=== PATIENT | female | born 1985 | race American Indian/Alaskan Native ===

== ENCOUNTER 2020-11-27 10:10 | Day surgery (SDC) | payer MEDICAID ==
[2020-11-27] MEDS ORDERED: HYDROmorphone 1 MG/1 ML INJ IV PRN ×2 (11:24)
[2020-11-27] MEDS ORDERED: ONDANSETRON 4 MG/2 ML INJ IV PRN (11:24)
--- NOTE | 2020-11-27 11:24 | Anesthesia Consultation ---
Anesthesia Consult and Med Hx Date of service: 11/27/20 - Airway Anesthetic Teeth Evaluation: Good ROM Head & Neck: Adequate Mental/Hyoid Distance: Adequate Mallampati Class: Class I Intubation Access Assessment: Good - Pre-Operative Health Status ASA Pre-Surgery Classification: ASA2 Proposed Anesthetic Plan: General - Pulmonary Hx Smoking: No Hx Asthma: No COPD: No Hx Pneumonia: No Hx Sleep Apnea: No - Cardiovascular System Hx Hypertension: Yes - Central Nervous System Hx Psychiatric Problems: No - Gastrointestinal Hx Gastroesophageal Reflux Disease: No - Endocrine Hx End Stage Renal Disease: No - Hematic Hx Sickle Cell Disease: No - Other Systems Hx Cancer: No Hx Obesity: Yes
--- NOTE | 2020-11-27 11:24 | Anesthesia Day of Surgery ---
Anesthesia Day of Surgery - Day of Surgery Patient Examined: Yes Patient H&P Reviewed: Yes Patient is NPO: Yes
[2020-11-27] MEDS ORDERED: ACETAMINOPHEN 500 MG TAB PO ONE (11:25)
[2020-11-27] MEDS ORDERED: MAGNESIUM OXIDE 400 MG TAB PO ONE (11:25)
[2020-11-27] MEDS ORDERED: LACTATED RINGERS 1,000 ML IV SCH (11:30)
[2020-11-27] MEDS ORDERED: MIDAZOLAM 2 MG/2 ML INJ IV NR (12:00)
[2020-11-27] MEDS ORDERED: CELECOXIB 200 MG CAP PO NR (12:00)
[2020-11-27] MEDS ORDERED: fentaNYL 100 MCG/2 ML INJ ONE (12:31)
[2020-11-27] MEDS ORDERED: propofoL 200 MG/20 ML VIAL IV ONE (12:31)
[2020-11-27] MEDS ORDERED: LIDOCAINE MPF (2%) 20 MG/1 ML VIAL 5 ML ONE ×2 (12:32)
[2020-11-27] MEDS ORDERED: BUPIVACAINE/PF (0.5%) 5 MG/1 ML 30 ML VIAL INFILTRATI ONE ×2 (12:46→14:12)
[2020-11-27] MEDS ORDERED: dexAMETHasone 20 MG/5 ML VIAL ONE (13:20)
[2020-11-27] MEDS ORDERED: ROCURONIUM 50 MG/5 ML INJ IV ONE (13:20)
[2020-11-27] MEDS ORDERED: ONDANSETRON 4 MG/2 ML INJ ONE (13:20)
[2020-11-27] MEDS ORDERED: GLYCOPYRROLATE 0.4 MG/2 ML INJ ONE (13:48)
[2020-11-27] MEDS ORDERED: NEOSTIGMINE 10MG/10 ML INJ MDV ONE (13:49)
--- NOTE | 2020-11-27 13:56 | History and Physical Report ---
History of Present Illness Date of examination: 11/27/20 History of present illness: PT is a 35 yo who desires sterilization. BTL papers signed 06/18/20. BP controlled well with meds. No other issues. Past History Past Medical History: hypertension Past Surgical History: no surgical history [employer] History: chlamydia Social history: no significant social history - Obstetrical History : 5 Para: 4 Spontaneous Abortions: 1 Number of Living Children: 4 Medications and Allergies Allergies Allergy/AdvReac Type Severity Reaction Status Date / Time No Known Allergies Allergy Verified 11/27/20 11:32 Home Medications Medication Instructions Recorded Confirmed Last Taken Type Norethindrone AC-Eth Estradiol 1 each PO DAILY 11/26/20 11/26/20 Unknown History [Norethin-Ee 1.5-0.03 mg(21) Tb] amLODIPine [Norvasc] 10 mg PO DAILY 11/26/20 11/26/20 Unknown History Review of Systems All systems: negative (except HPI) - Vital Signs Vital signs: see EMR charting - Physical Exam Cardiovascular: Regular rate, No murmurs Lungs: Positive: Clear to auscultation, Normal air movement Vulva: both: normal Vagina: Positive: normal moisture. Negative: discharge Cervix: Negative: lesion, discharge Uterus: Positive: normal size, normal contour Adnexa: both: normal Results All other labs normal. Assessment and Plan - Patient Problems (1) Sterilization Current Visit: No Status: Acute Plan to address problem: PT is for Lap BTL on 11/27/20. PT fully counseled including the approximately 09/999 risk of BTL failure. She understands and accepts that. Patient fully consented for the surgery. Risks, benefits, and alternatives were all discussed with the patient including risk of bleeding, infection, and potential for injury. Patient understands and accepts these risks. Patient agrees to proceed with surgery. All questions were answered.
--- NOTE | 2020-11-27 14:00 | Post Operative Note ---
Date of procedure: 11/27/20 Pre-op diagnosis: Sterilization Post-op diagnosis: same Findings: Normal uterus and tubes. Ovaries appear to be within normal limits but visualization of both of them was partially obstructed by the scarring that she had. This was likely from her history of chlamydia. The remainder of the abdominal survey was within normal limits. Procedure: Indication: This is a 35-year-old -0-1-4 who desires sterilization. As result patient here for her scheduled laparoscopic bilateral tubal ligation with Filshie clips. Procedure: Laparoscopic bilateral tubal ligation. Patient taken the operating room and prepped and draped in usual fashion. Attention was first turned vaginally where single-tooth tenaculum was applied to the anterior lip of the cervix and an acorn uterine manipulator was placed. Attention was now turned abdominally where a 5 mm incision was made in the umbilicus. Veres needle then placed in the abdominal cavity. The abdomen was appropriately insufflated with CO2 gas. Veres needle removed and the 5 mm trocar was placed in abdominal cavity. Placement confirmed with the camera. Attention was turned suprapubically where an 8 mm incision was made and the 8 mm trocar was placed suprapubically in the midline under direct visualization. Trocar placed successfully and without difficulty. Attention was first turned to assess in the abdomen and pelvis. Findings noted above. Attention turned to the tubal ligation where a Filshie clip was applied to each tube. Each clip encompassed the full width of the tube on each side and good hemostasis was noted afterwards on both sides. At this point the abdomen was fully desufflated. Trochars were removed. Trocar sites were closed with 4-0 Vicryl in a subcuticular fashion followed by Marcaine. The acorn uterine manipulator and single-tooth tenaculum were removed. Procedure concluded at this point. Patient tolerated the procedure well. All instrument lap counts were correct. Patient taken to the recovery room in stable condition. Anesthesia: GETA Surgeon: CARRINGTON CRUZ Estimated blood loss: minimal Pathology: none Condition: stable Disposition: PACU
--- NOTE | 2020-11-27 14:01 | Short Stay Summary ---
Short Stay Documentation Date of service: 11/27/20 Narrative H&P: Patient here for her scheduled laparoscopic bilateral tubal ligation with Filshie clips on 11/27/2020. Surgery was successful and uncomplicated. Please see H&P and operative report for details. Patient sent home and is to follow-up in the office 2 weeks postop. - History H&P: dictated Social history: no significant social history - Allergies and Medications Current Medications: Allergies No Known Allergies Allergy (Verified 11/27/20 11:32) Home Medications Medication Instructions Recorded Confirmed Last Taken Type Norethindrone AC-Eth Estradiol 1 each PO DAILY 11/26/20 11/26/20 Unknown History [Norethin-Ee 1.5-0.03 mg(21) Tb] amLODIPine [Norvasc] 10 mg PO DAILY 11/26/20 11/26/20 Unknown History Active Medications Celecoxib (Celecoxib 200 Mg Cap) 400 mg PO PREOP NR Stop: 11/27/20 20:00 Last Admin: 11/27/20 11:45 Dose: 400 mg Documented by: Hydromorphone HCl (Hydromorphone 1 Mg/1 Ml Inj) 0.25 mg IV Q10MIN PRN PRN Reason: Pain, Moderate (4-6) Hydromorphone HCl (Hydromorphone 1 Mg/1 Ml Inj) 0.5 mg IV Q10MIN PRN PRN Reason: Pain , Severe (7-10) Lactated Ringer's (Lactated Ringers) 1,000 mls @ 125 mls/hr IV DIRECT JOANNA Last Admin: 11/27/20 12:09 Dose: 125 mls/hr Documented by: Midazolam HCl (Midazolam 2 Mg/2 Ml Inj) 2 mg IV PREOP NR Stop: 11/27/20 23:59 Last Admin: 11/27/20 12:09 Dose: 2 mg Documented by: Ondansetron HCl (Ondansetron 4 Mg/2 Ml Inj) 4 mg IV ONCE PRN PRN Reason: Nausea And Vomiting - Disposition Condition at discharge: Stable Disposition: DC-01 TO HOME OR SELFCARE - Discharge Diagnoses (1) Sterilization Status: Acute Short Stay Discharge Plan Follow up with: PRIMARY CARE, [Primary Care Provider] - 7 Days
[2020-11-27] MEDS ORDERED: SODIUM CHLORIDE 0.9% IRR 1,500 ML BOTTLE IR ONE (14:13)
--- NOTE | 2020-11-27 17:05 | Post Anesthesia Evaluation ---
- Post Anesthesia Evaluation Patient Participated: Yes Airway Patent: Yes Stable Respiratory Function: Yes Nausea/Vomiting: No Temp > 96.8F: Yes Pain Manageable: Yes Adequeate Hydration: Yes Anesthesia Complications: No Block Receding Appropriately: Not Applicable Patient on Ventilator: No
[2020-11-27 17:40] VITALS: BP 114/68
== END 2020-11-27 10:11 | disposition home or self-care (01) ==
LOC: OR 10:10
PROVIDERS: ATTEND Obstetrics & Gynecology
DX: Z30.2 Encounter for sterilization (principal); I10 Essential (primary) hypertension; E66.9 Obesity, unspecified; Z79.899 Other long term (current) drug therapy; Z68.34 Body mass index [BMI] 34.0-34.9, adult
CPT/HCPCS: 58671; 81025; J1100; J1170; J2250; J2405; J2704; J2710; J3010; J7120